=== PATIENT | female | born 1970 | race Caucasian/White ===

== ENCOUNTER 2022-07-06 08:48 | Emergency (ER) | payer BC, SELFPAY ==
[2022-07-06] VITALS (22 sets, daily range): BP systolic 83–104; BP diastolic 42–56; PULSE 56–88; RESP 24; TEMP 35.6; O2SAT 92–100; BMI 22.6
--- NOTE | 2022-07-06 09:15 | ED_ITS ---
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 Patient pretty abrupt onset of left lower quadrant pain radiating to her left back. No fevers that she is aware of. It has been persistent throughout this morning. She is had some nausea and vomiting that started with the pain. She is had normal bowel movements with no diarrhea constipation, no black or bloody stools. She denies dysuria, urgency or frequency. She is supposed to be star ting her period in the next day or 2. No new vaginal discharge or bleeding. She denies dysuria, urgency, frequency or hematuria. She has not had similar symptoms in the past. Patient denies other surgeries besides prior . She is told she is always got low blood pressure. No tobacco, occasional alcohol, no illicit. She is accompanied by her significant other. Related Data Home Medications Medication Instructions Recorded Confirmed [DHEA] ##0 02/20/17 [HYDROCORTISONE] ##0 02/20/17 fludrocortisone 0.1 mg tablet 0.1 mg PO ##0 02/20/17 Previous Rx's Medication Instructions Recorded ciprofloxacin HCl 500 mg tablet 500 mg PO BID #14 tabs 02/20/17 (Cipro) cephalexin 500 mg capsule 500 mg PO BID 10 days #20 caps 07/06/22 ketorolac 10 mg tablet 10 mg PO Q6H PRN pain 3 days #10 07/06/22 tabs oxycodone 5 mg tablet 5 mg PO QID PRN pain #14 tabs 07/06/22 tamsulosin 0.4 mg capsule (Flomax) 0.4 mg PO DAILY #7 caps 07/06/22 Allergies Allergy/AdvReac Type Severity Reaction Status Date / Time No Known Drug Allergies Allergy Verified 07/06/22 09:41 Review of Systems Review of Systems ROS Unobtainable: All systems reviewed & are unremarkable except as noted in HPI and below Patient History Social History Smoking Status: Never smoker Smoking Status: Never smoker Substance Use Type: does not use Exam Narrative Exam Narrative: GENERAL: Alert and oriented x three, female in moderate distress. HEENT: Head normocephalic, atraumatic, EOMI, pupils reactive, face symmetric, moist mucous membranes NECK: Supple, full range of motion CARDIOVASCULAR: Regular rate and rhythm without murmurs, rubs or gallops. RESPIRATORY: Breath sounds equal bilaterally, no wheezes rales or rhonchi. ABDOMEN: Soft, left lower quadrant tenderness Normoactive bowel sounds all 4 qu adrants. No guarding or rebound, rigidity, no mass, no pulsatile mass or bruit. : Positive left CVA CVA tenderness, right CVA tenderness tenderness EXTREMITIES: Normal range of motion, no clubbing or edema. Neurovascularly intact NEUROLOGICAL: Cranial nerves II through XII grossly intact. Moving all extremities SKIN: Warm, dry, no petechiae, no rashes or lesions. Initial Vital Signs Initial Vital Signs: Vital Signs Pulse Rate 63 07/06/22 09:06 Blood Pressure 83/54 L 07/06/22 09:06 Pulse Oximetry 99 07/06/22 09:06 Course Orders Ordered: ED Orders 07/06/22 10:55 Blood Culture Stat Test Serum,Qual Stat 07/06/22 12:10 Urine Culture Stat Urine Microscopic Stat Discontinued Medications Fentanyl (Fentanyl 100 Mcg/2 Ml Inj) 25 mcg IV NOW ONE Stop: 07/06/22 09:18 Last Admin: 07/06/22 09:36 Dose: 25 mcg Documented By: BRYANT Hydrocortisone (Hydrocortisone 100 Mg/2 Ml Vial) 100 mg IV NOW ONE Stop: 07/06/22 09:16 Last Admin: 07/06/22 09:36 Dose: 100 mg Documented By: BRYANT Sodium Chloride (Normal Saline 0.9%) 1,000 mls @ 1,000 mls/hr IV BOLUS ONE Stop: 07/06/22 10:14 Last Infusion: 07/06/22 11:49 Dose: 0 mls/hr Documented By: Admin: 07/06/22 09:40 Dose: 1,000 mls/hr Documented By: BRYANT Sodium Chloride (Normal Saline 0.9%) 1,000 mls @ 1,000 mls/hr IV BOLUS ONE Stop: 07/06/22 13:01 Last Infusion: 07/06/22 14:27 Dose: 0 mls/hr Documented By: Admin: 07/06/22 12:30 Dose: 1,000 mls/hr Documented By: BRYANT Ceftriaxone Sodium 2,000 mg/ (Sodium Chloride) 100 mls @ 200 mls/hr IV NOW ONE Stop: 07/06/22 13:04 Last Infusion: 07/06/22 14:27 Dose: 0 mls/hr Documented By: Admin: 07/06/22 13:31 Dose: 200 mls/hr Documented By: BRYANT Ketorolac Tromethamine (Ketorolac 30 Mg/Ml Vial) 30 mg IV NOW ONE Stop: 07/06/22 11:25 Last Admin: 07/06/22 11:42 Dose: 30 mg Documented By: BRYANT Ondansetron HCl (Ondansetron 4 Mg/2 Ml Inj) 4 mg IV NOW ONE Stop: 07/06/22 09:37 Last Admin: 07/06/22 09:39 Dose: 4 mg Documented By: BRYANT Ondansetron HCl (Ondansetron 4 Mg/2 Ml Inj) 4 mg IV NOW ONE Stop: 07/06/22 09:41 Last Admin: 07/06/22 09:48 Dose: 4 mg Documented By: GAGE Tamsulosin HCl (Tamsulosin 0.4 Mg Capsule) 0.4 mg PO NOW ONE Stop: 07/06/22 11:26 Last Admin: 07/06/22 11:42 Dose: 0.4 mg Documented By: BRYANT Vital Signs Vital signs: Vital Signs - 8 hr 07/06/22 11:15 07/06/22 11:15 07/06/22 11:30 Pulse Rate 70 Blood Pressure 95/55 L 88/45 L Pulse Oximetry 99 07/06/22 11:30 07/06/22 11:45 07/06/22 11:47 Pulse Rate 78 73 78 Blood Pressure Pulse Oximetry 98 100 100 07/06/22 11:47 07/06/22 12:00 07/06/22 12:00 Pulse Rate 73 Blood Pressure 104/52 L 98/53 L Pulse Oximetry 97 07/06/22 12:15 07/06/22 12:30 07/06/22 12:30 Pulse Rate 71 75 Blood Pressure 94/50 L Pulse Oximetry 100 100 07/06/22 13:00 07/06/22 13:00 07/06/22 13:30 Pulse Rate 77 Blood Pressure 88/49 L 84/46 L Pulse Oximetry 99 07/06/22 13:30 07/06/22 13:38 07/06/22 13:38 Pulse Rate 76 77 Blood Pressure 86/48 L Pulse Oximetry 98 99 07/06/22 14:00 07/06/22 14:00 07/06/22 14:54 Pulse Rate 77 Blood Pressure 87/46 L 86/42 L Pulse Oximetry 99 07/06/22 14:54 Pulse Rate 79 Blood Pressure Pulse Oximetry 97 MDM - Abdominal Pain Lab Data Result diagrams: 07/06/22 09:10 07/06/22 09:10 Labs: Lab Results 07/06/22 07/06/22 07/06/22 Range/Units 09:10 09:10 09:21 WBC 13.6 H (4.5-11.0) X10^3/uL RBC 4.07 (4.0-5.2) X10^6/uL Hgb 13.3 (12.0-16.0) g/dL Hct 39.4 (36-46) % MCV 96.8 (80-100) fL MCH 32.8 (26-34) PG MCHC 33.8 (30-36) % RDW 12.9 (11.6-14.8) % Plt Count 229 (150-400) X10^3/uL Neut % (Auto) 69.7 (50-75) % Lymph % (Auto) 21.2 L (25-40) % [place] % (Auto) 8.0 (3-14) % Eos % (Auto) 0.7 L (2-4) % Baso % (Auto) 0.4 (0-2) % Neut # (Auto) 9400 H (0306-8586) /uL Lymph # (Auto) 2900 (7796-3402) /uL [place] # (Auto) 1100 H (0-900) /uL Eos # (Auto) 100 (0-450) /uL Baso # (Auto) 100 (0-100) /uL Sodium 138 (137-145) mmol/L Potassium 3.5 (3.4-5.1) mmol/L Chloride 104 (98-107) mmol/L Carbon Dioxide 24 (22-32) mmol/L BUN 16 (7-17) mg/dL Creatinine 0.89 (0.52-1.04) mg/dL Estimated GFR > 60 (>60) mL/min BUN/Creatinine Ratio 18.0 (6-22) Glucose 108 H (70-100) mg/dL Lactate 1.3 (0.7-2.1) mmol/L Calcium 8.3 L (8.4-10.2) mg/dL Total Bilirubin 0.5 (0.2-1.3) mg/dL AST 33 (14-36) IU/L ALT 37 H (<35) IU/L Alkaline Phosphatase 67 (38-126) U/L Total Protein 6.7 (6.3-8.2) g/dL Albumin 3.8 (3.5-5.0) g/dL Globulin 2.9 (1.7-4.1) g/dL Albumin/Globulin Ratio 1.3 (1.0-2.8) Lipase 105 (23-300) U/L Serum , Qual (Negative) Urine RBC (0-5/HPF) Urine WBC (0-5/HPF) Ur Squamous Epith Cells (0-5/HPF) Urine Bacteria (None) Ur Culture Indicated? 07/06/22 07/06/22 Range/Units 10:55 12:10 WBC (4.5-11.0) X10^3/uL RBC (4.0-5.2) X10^6/uL Hgb (12.0-16.0) g/dL Hct (36-46) % MCV (80-100) fL MCH (26-34) PG MCHC (30-36) % RDW (11.6-14.8) % Plt Count (150-400) X10^3/uL Neut % (Auto) (50-75) % Lymph % (Auto) (25-40) % [place] % (Auto) (3-14) % Eos % (Auto) (2-4) % Baso % (Auto) (0-2) % Neut # (Auto) (0699-7077) /uL Lymph # (Auto) (2723-8190) /uL [place] # (Auto) (0-900) /uL Eos # (Auto) (0-450) /uL Baso # (Auto) (0-100) /uL Sodium (137-145) mmol/L Potassium (3.4-5.1) mmol/L Chloride (98-107) mmol/L Carbon Dioxide (22-32) mmol/L BUN (7-17) mg/dL Creatinine (0.52-1.04) mg/dL Estimated GFR (>60) mL/min BUN/Creatinine Ratio (6-22) Glucose (70-100) mg/dL Lactate (0.7-2.1) mmol/L Calcium (8.4-10.2) mg/dL Total Bilirubin (0.2-1.3) mg/dL AST (14-36) IU/L ALT (<35) IU/L Alkaline Phosphatase (38-126) U/L Total Protein (6.3-8.2) g/dL Albumin (3.5-5.0) g/dL Globulin (1.7-4.1) g/dL Albumin/Globulin Ratio (1.0-2.8) Lipase (23-300) U/L Serum , Qual Negative (Negative) Urine RBC >100/hpf H (0-5/HPF) Urine WBC 10-30/hpf H (0-5/HPF) Ur Squamous Epith Cells 5-10 /hpf H (0-5/HPF) Urine Bacteria Many (>30) H (None) Ur Culture Indicated? Specimen cultured Point of care testing: Point of Care Testing Test Results Negative Urine Dip Bedside Urine Glucose Negative Bedside Urine Bilirubin - Negative Bedside Urine Ketone + 15 Urine Specific Diamond 1.010 Bedside Urine Occult Blood +++ Bedside Urine pH 7.5 Bedside Urine Protein + 30 Bedside Urine Urobilinogen - Negative Bedside Urine Nitrite - Negative Bedside Urine Leukocytes + [address] scan - abdomen/pelvis: Radiologist's Impression: Close Abdomen/Pelvis CT (Signed) Lucia Figueroa - 07/06/22 Launch?[address] [address] [address] Scan Report Signed Patient: Melanie Urena MR#: [id number] : 1970 Acct:[id number] Age/Sex: 52 / F Date of Service: 07/06/22 Loc: ED Accession Number: [id number] ?? Procedure: CT abdomen pelvis w con Ordering Provider: Carolyn Cortez D.O. PROCEDURE:? CT ABDOMEN PELVIS W CON ? INDICATIONS:? Left abd/flank pain, hypotension, ?stone vs other addisons h ? TECHNIQUE:? After the administration of oral and IV contrast, axial sections were acquired from the lung bases to the pubic symphysis.? Coronal and sagittal reformats were performed.? For radiation dose reduction, the following was used:? automated exposure control, adjustment of mA and/or kV according to patient size. ? COMPARISON:? None. ? FINDINGS:? Image quality:? Excellent.? ? Lung bases:? Clear lung bases.? Tiny hiatal hernia. Heart:? No significant findings. ? ? ABDOMEN: Liver:? No suspicious mass. Gallbladder:? No wall thickening or visible calcification. Biliary ducts:? Nondilated. Pancreas:? Normal. Spleen:? Normal size. Adrenal Glands:? No nodules. Kidneys and Ureters:? 5 x 4 mm calcification with internal Hounsfield units of 883 is present in the left distal ureter.? Proximally, there is mild to moderate hydroureteronephrosis as well as of delayed left nephrogram.? There are two other nonobstructing lower pole calculi in the left kidney measuring 3 mm.? A subcentimeter cortical cyst is present in the midpole of the left and upper to mid pole of the right kidney.? The right kidney also contains a corticomedullary right lower pole cy st? ? Stomach and Bowel:? Occasional colonic diverticula.? No acute pericolonic inflammation.? Stomach and small bowel are normal.? Normal appendix. Peritoneum:? Trace fascial thickening along the left lower anterior pararenal fascia.? No intraperitoneal fluid or free air. ? Ventral Wall: ? No hernia.? Abdominal Nodes:? No retroperitoneal or mesenteric adenopathy by size criteria.? Vessels:? Aorta and inferior vena cava are normal in size.? ? PELVIS: Pelvic Organs:? The uterus is anteverted and contains a heterogeneous, anterior myometrial mass measuring about 3.3 x 3.7 cm consistent with a fibroid.? No suspicious adnexal masses. Bladder:? Normal. Pelvic Nodes: No enlarged lymph nodes.? Miscellaneous: No inguinal hernias are seen. ? ? ? Bones:? Unremarkable.? IMPRESSION:? ? 1. 5 mm obstructing left distal ureteral calcification. ? 2. Delayed left nephrogram suggesting relatively decreased left renal function due to obstruction. ? 3. Two retained nonobstructing left intrarenal calculi. ? 4. Anterior myometrial uterine fibroid.? ? Dictated by: Lucia Figueroa M.D. on 07/06/2022 at 11:00 ? ? Approved by: Lucia Figueroa M.D. on 07/06/2022 at 11:09?? MDM Narrative Medical decision making narrative: 52-year-old female with sudden onset left flank pain vomiting patient is hypotensive but has been told blood pressure is low typically. She does have Collins's disease was given 1 dose of Solu-Cortef as patient could not tell me her exact average. Fluids, labs show no significant changes to CBC, renal fun ction or electrolytes, CT KUB shows a 5 mm stone. Urine point of care dip does not show leuks or nitrates but microscopy shows squamous epithelials but white cells as well as bacteria so patient covered with antibiotic for possible infection. Pain is much improved moderately with fentanyl and significantly better after Toradol. Patient given Flomax, Zofran patient continues to be pain-free with hypotension but likely patient's baseline. Patient did receive a dose of Rocephin because of questionable infection on urine and patient's history of Collins's was covered with antibiotics rather than wait for urine culture. Discussed plan, return precautions and patient feels comfortable with this. Discharge Plan Departure Patient Disposition: Home Clinical Impression: Kidney stone on left side, Fibroid, uterine Instructions: DI for Kidney Stones Activity Restrictions/Additional Instructions: Follow-up with urology for recheck if her symptoms have not resolve in the next 24-48 hours. Call to set up an appointment. You have a kidney stone today on your imaging, your urine shows possible infection so we are going to treat you for infection. Take Flomax once daily until gone. You may take ketorolac 1 tablet every 6 hours as needed for pain. Do not take for more than 5 days in a row. You can take Tylenol up to a 1000 mg every 6 hours as needed for pain in addition to ketorolac and if needed can add oxycodone 1-2 tablets every 6 hours as needed for pain management. This medication can make you sleepy do not drive, perform hazardous activities or make any major decisions while taking it. This medication will make you constipated please take a stool softener once to twice daily until stools are soft and regular. Prescription sent to [facility] in [place] Please return for fevers, rapidly worsening or intractable pain, persistent vomiting, lightheadedness or passing out, black or bloody stools, inability to urinate or other new or concerning changes. Prescriptions: New tamsulosin [Flomax] 0.4 mg capsule 0.4 mg PO DAILY Qty: 7 0RF cephalexin 500 mg capsule 500 mg PO BID 10 Days Qty: 20 0RF ketorolac 10 mg tablet 10 mg PO Q6H PRN (Reason: pain) 3 Days Qty: 10 0RF oxycodone 5 mg tablet 5 mg PO QID PRN (Reason: pain) Qty: 14 0RF No Action ciprofloxacin HCl [Cipro] 500 MG tablet 500 mg PO BID Qty: 14 0RF fludrocortisone 0.1 MG tablet 0.1 mg PO Qty: 0 [HYDROCORTISONE] Qty: 0 [DHEA] Qty: 0 Referrals: Parker Soto MD [Physician] - Visit Report Forms: Patient Portal/API
[2022-07-06 09:19] LABS: Add Manual Diff / Slide Review NO; Basophils Absolute Auto 100 /uL (0-100); Basophils Percent Auto 0.4 % (0-2); Eosinophils Absolute Auto 100 /uL (0-450); Eosinophils Percent Auto 0.7 % (2-4); Hematocrit 39.4 % (36-46); Hemoglobin 13.3 g/dL (12.0-16.0); Lymphocytes Absolute Auto 2900 /uL (1100-4500); Lymphocytes Percent Auto 21.2 % (25-40); Mean Corpuscular HGB Conc 33.8 % (30-36); Mean Corpuscular Hemoglobin 32.8 PG (26-34); Mean Corpuscular Volume 96.8 fL (80-100); Monocytes Absolute Auto 1100 /uL (0-900); Neutrophils Absolute Auto 9400 /uL (1500-7000); Neutrophils Percent Auto 69.7 % (50-75); Platelet Count 229 X10^3/uL (150-400); Red Blood Cell Count 4.07 X10^6/uL (4.0-5.2); Red Cell Distribution Width 12.9 % (11.6-14.8); White Blood Cell Count 13.6 X10^3/uL (4.5-11.0)
[2022-07-06 09:36] LABS: Alanine Aminotransferase 37 IU/L (<35); Albumin 3.8 g/dL (3.5-5.0); Albumin Globulin Ratio 1.3 (1.0-2.8); Alkaline Phosphatase 67 U/L (38-126); Aspartate Aminotransferase 33 IU/L (14-36); Bilirubin Total 0.5 mg/dL (0.2-1.3); Blood Urea Nitrogen 16 mg/dL (7-17); Calcium 8.3 mg/dL (8.4-10.2); Carbon Dioxide 24 mmol/L (22-32); Chloride 104 mmol/L (98-107); Estimated Glomerular Filt Rate > 60 mL/min (>60); Globulin 2.9 g/dL (1.7-4.1); Glucose 108 mg/dL (70-100); HEMOLYSIS < 15 (0-50); Lipase 105 U/L (23-300); Potassium 3.5 mmol/L (3.4-5.1); Sodium 138 mmol/L (137-145); Total Protein 6.7 g/dL (6.3-8.2)
[2022-07-06] MEDS: fentaNYL 100 MCG/2 ML INJ 25 MCG IV (09:36)
[2022-07-06] MEDS: HYDROCORTISONE 100 MG/2 ML VIAL IV (09:36)
[2022-07-06 09:39] LABS: Lactate (Lactic Acid) 1.3 mmol/L (0.7-2.1)
[2022-07-06] MEDS: ONDANSETRON 4 MG/2 ML INJ IV ×2 (09:39→09:48)
[2022-07-06] MEDS: SODIUM CHLORIDE 0.9% 1,000 ML 1000 ML IV ×2 (09:40→12:30)
--- NOTE | 2022-07-06 09:41 | DI.CT.S_ITS ---
PROCEDURE: CT ABDOMEN PELVIS W CON INDICATIONS: Left abd/flank pain, hypotension, ?stone vs other addisons h TECHNIQUE: After the administration of oral and IV contrast, axial sections were acquired from the lung bases to the pubic symphysis. Coronal and sagittal reformats were performed. For radiation dose reduction, the following was used: automated exposure control, adjustment of mA and/or kV according to patient size. COMPARISON: None. FINDINGS: Image quality: Excellent. Lung bases: Clear lung bases. Tiny hiatal hernia. Heart: No significant findings. ABDOMEN: Liver: No suspicious mass. Gallbladder: No wall thickening or visible calcification. Biliary ducts: Nondilated. Pancreas: Normal. Spleen: Normal size. Adrenal Glands: No nodules. Kidneys and Ureters: 5 x 4 mm calcification with internal Hounsfield units of 883 is present in the left distal ureter. Proximally, there is mild to moderate hydroureteronephrosis as well as of delayed left nephrogram. There are two other nonobstructing lower pole calculi in the left kidney measuring 3 mm. A subcentimeter cortical cyst is present in the midpole of the left and upper to mid pole of the right kidney. The right kidney also contains a corticomedullary right lower pole cyst Stomach and Bowel: Occasional colonic diverticula. No acute pericolonic inflammation. Stomach and small bowel are normal. Normal appendix. Peritoneum: Trace fascial thickening along the left lower anterior pararenal fascia. No intraperitoneal fluid or free air. Ventral Wall: No hernia. Abdominal Nodes: No retroperitoneal or mesenteric adenopathy by size criteria. Vessels: Aorta and inferior vena cava are normal in size. PELVIS: Pelvic Organs: The uterus is anteverted and contains a heterogeneous, anterior myometrial mass measuring about 3.3 x 3.7 cm consistent with a fibroid. No suspicious adnexal masses. Bladder: Normal. Pelvic Nodes: No enlarged lymph nodes. Miscellaneous: No inguinal hernias are seen. Bones: Unremarkable. IMPRESSION: 1. 5 mm obstructing left distal ureteral calcification. 2. Delayed left nephrogram suggesting relatively decreased left renal function due to obstruction. 3. Two retained nonobstructing left intrarenal calculi. 4. Anterior myometrial uterine fibroid. Dictated by: Lucia Figueroa M.D. on 07/06/2022 at 11:00 Approved by: Lucia Figueroa M.D. on 07/06/2022 at 11:09
[2022-07-06 11:32] LABS: Pregnancy Test Serum,Qual Negative (Negative)
[2022-07-06] MEDS: KETOROLAC 30 MG/ML VIAL IV (11:42)
[2022-07-06] MEDS: TAMSULOSIN 0.4 MG CAPSULE PO (11:42)
[2022-07-06 12:41] LABS: Bacteria Urine Many (>30); Culture Indicated Urine Specimen Cultured; RBC Urine >100/HPF (0-5/HPF); Squamous Epithelial Cell Urine 5-10 /HPF (0-5/HPF); WBC Urine 10-30/HPF (0-5/HPF)
[2022-07-06] MEDS: cefTRIAXone 2,000 MG in SODIUM CHLORIDE 0.9% 100 ML 200 MG IV (13:31)
--- NOTE | 2022-07-06 15:00 | PC.NURSE ---
Provider notified of BP and ok'd for D/C
== END 2022-07-06 15:19 | disposition home or self-care (01) ==
PROVIDERS: Emergency Provider Emergency Medicine
DX: R11.2 Nausea with vomiting, unspecified (principal); N20.0 Calculus of kidney; D25.9 Leiomyoma of uterus, unspecified
CPT/HCPCS: 36415; 74177; 80053; 81003; 81015; 81025; 83605; 83690; 84703; 85025; 87040; 87086; 96361; 96365; 96375; 99284; J0696; J1720; J1885; J2405; J3010; Q9967

== ENCOUNTER → 2022-07-20 11:48 | Outpatient (CLI) | payer BC, SELFPAY ==
--- NOTE | 2022-07-20 12:02 | DI.RAD.S_ITS ---
PROCEDURE: XR KUB INDICATIONS: Kidney stones TECHNIQUE: One view of the abdomen acquired. COMPARISON: [facility], CT, CT ABDOMEN PELVIS W CON, 07/06/2022, 10:23. FINDINGS: Surgical changes and devices: None. Bowel: Bowel gas pattern is normal. Soft tissues: There are small left renal calculi in the inferior pole. The distal left ureteral stone is not definitively visualized. There are a few calcific foci in the pelvis, indeterminate. Visualized solid organ contours appear normal in size. Bones: No suspicious bony lesions. IMPRESSION: 1. The left distal ureteral stone is no longer definitively seen. 2. Small renal calculi in the inferior pole of the left kidney. Dictated by: Marleni Vargas M.D. on 07/20/2022 at 21:04 Approved by: Marleni Vargas M.D. on 07/20/2022 at 21:06
[2022-07-20 15:56] LABS: Appearance Urine UA CLEAR; Bilirubin Urine UA NEGATIVE (NEGATIVE); Color Urine UA YELLOW; Glucose Urine UA NEGATIVE (Negative); Ketones Urine UA NEGATIVE (NEGATIVE); Leukocyte Esterase Urine UA NEGATIVE (NEGATIVE); Nitrite Urine UA NEGATIVE (Negative); Occult Blood Urine UA TRACE-INTACT (Negative); Protein Urine UA NEGATIVE (Negative); Specific Gravity Urine UA <=1.005 (1.000-1.035); Urobilinogen Urine UA 0.2 E.U./dL (0.2)
[2022-07-20 16:08] LABS: Bacteria Urine None Seen; Culture Indicated Urine Cult Not Indicated; RBC Urine 0-1/HPF (0-5/HPF); WBC Urine None Seen (0-5/HPF)
== END ==
PROVIDERS: PCP Physician Assistant Medical; Referring Provider Specialist; Visit Provider Specialist
DX: N20.0 Calculus of kidney (principal); N39.0 Urinary tract infection, site not specified
CPT/HCPCS: 74018; 81001

== ENCOUNTER → 2022-07-21 15:27 | Outpatient (CLI) | payer BC, SELFPAY ==
[2022-07-26 19:36] LABS: Ca oxalate dihydrate 50 % (.); Ca oxalate monohydr 40 % (.); Hydroxyapatite 10 % (.); Size 6x4 mm (.)
== END ==
PROVIDERS: PCP Physician Assistant Medical; Visit Provider Specialist
DX: N20.0 Calculus of kidney (principal)
CPT/HCPCS: 81002; 82365

== ENCOUNTER → 2024-04-27 14:50 | Outpatient (CLI) | payer BC, SELFPAY ==
--- NOTE | 2024-04-27 | DI.MG.S_ITS ---
BILATERAL DIGITAL SCREENING MAMMOGRAM 3D/2D WITH CAD: 04/27/2024 CLINICAL: Routine screening. Comparison is made to exam dated: 06/26/2016 mammogram - Outside facility. Both breasts are heterogeneously dense, which may obscure small masses (category c / 51-75% glandular tissue). Current study was also evaluated with a Computer Aided Detection (CAD) system. There is a stable benign mass in the right breast. No significant masses, calcifications, or other findings are seen in either breast. There has been no significant interval change. IMPRESSION: BENIGN There is no mammographic evidence of malignancy. A 1 year screening mammogram is recommended. Based on the Tyrer Cuzick model (a risk assessment model) the patient's lifetime risk is 5.2% and her 10 year risk is 1.4%. According to the ACR, ACS, and NCCN guidelines, an annual breast MRI exam along with mammogram is recommended if the patient's lifetime risk is 20% or greater. This exam was interpreted at Station ID: [id number]. NOTE: For mammograms, a report in lay terms will be sent to the patient. Approximately 15% of breast malignancies will not be visualized mammographically. In the management of a palpable breast mass, a negative mammogram must not discourage biopsy of a clinically suspicious lesion. Electronically Signed By: Hola [email or web address]/[email or web address]:04/28/2024 11:35:17 letter sent: Normal Exam ACR BI-RADS Category 2: Benign Finding(s) 3342F
== END ==
PROVIDERS: PCP Nurse Practitioner Family; Referring Provider Nurse Practitioner Family; Visit Provider Nurse Practitioner Family
DX: Z12.31 Encounter for screening mammogram for malignant neoplasm of breast (principal); R92.333 Mammographic heterogeneous density, bilateral breasts
CPT/HCPCS: 77063; 77067